=== PATIENT | female | born 1980 | race Caucasian/White ===

== ENCOUNTER → 2017-07-08 | Outpatient (CLI) | payer OTHER ==
--- NOTE | 2017-07-08 08:56 | Diagnostic Imaging Report ---
Bilateral diagnostic mammogram with tomography. INDICATION: Palpable lump in the outer aspect of the right breast. CAD is utilized. FINDINGS: There is an asymmetry seen in the outer aspect of the right breast measuring approximately 1.3 cm. This persists on the tomographic view; however, when this is evaluated with focal compression view and corresponding tomography, no definite underlying lesion is seen. IMPRESSION: Outer right breast asymmetry seen on the CC projection is less prominent on focal compression view in favor of summation artifact of parenchyma. Ultrasound evaluation pending. ACR BI-RADS Category 0: Incomplete. (Needs additional imaging evaluation). Result letter will be mailed to the patient. Note: At least 10% of breast cancer is not imaged by mammography. Dictated by: Dictated on workstation # [id number]
--- NOTE | 2017-07-08 08:59 | Diagnostic Imaging Report ---
Right breast ultrasound. INDICATION: Palpable lump in the outer aspect of the right breast. FINDINGS: Unremarkable breast parenchyma is seen with no focal lesion. IMPRESSION: Negative study. ACR BI-RADS Category 1: Negative. Result letter will be mailed to the patient. Note: At least 10% of breast cancer is not imaged by mammography. Dictated by: Dictated on workstation # [id number]
== END ==
LOC: RAD 07:48
PROVIDERS: ATTEND Nurse Practitioner Family
DX: Z12.31 Encounter for screening mammogram for malignant neoplasm of breast (principal); N63 Unspecified lump in breast
CPT/HCPCS: 77066